=== PATIENT | male | born 1975 | race Two or more races ===

== ENCOUNTER 2025-05-03 10:05 | Emergency (ER) | payer OTHER ==
[~2025-05-03] VITALS: Ht 167.6 cm; Wt 64.0 kg
[2025-05-03] MEDS ORDERED: ZESTRIL2.5 MG PO (10:15)
[2025-05-03] MEDS ORDERED: KETOROLAC TROMETHAMINE 60 MG VIAL IM STA (12:55)
[2025-05-03] MEDS ORDERED: CEFAZOLIN SODIUM 1,000 MG VIAL IV STA (12:55)
[2025-05-03] MEDS ORDERED: CEFAZOLIN SODIUM 1,000 MG VIAL ONE (12:56)
[2025-05-03] MEDS ORDERED: KETOROLAC TROMETHAMINE 60 MG VIAL IM ONE (12:56)
== END 2025-05-03 14:54 | disposition home or self-care (01) ==
LOC: ER 10:11
DX: K61.0 Anal abscess (principal); I10 Essential (primary) hypertension